=== PATIENT | male | born 1975 | race Hispanic/Latino ===

== ENCOUNTER → 2018-03-21 | Outpatient (CLI) | payer BC ==
[~2018-03-21] MED LIST: Z.0.AMIODARONE HCL20 PO; Z.0.CARVEDILOL6.25 M PO; Z.0.DIGOXIN125 MCG PO; Z.0.LASIX40 MG PO; Z.0.WARFARIN SODIUM4 PO
--- NOTE | 2018-03-21 16:48 | Diagnostic Imaging Report ---
PROCEDURE:HAND RIGHT 3 VIEWS AP \T\ LAT COMPARISON:None. INDICATIONS:RIGHT HAND AND WRIST PAIN, NO INJURY FINDINGS: The osseous structures are well developed and mineralized without fracture, dislocation, or focal osseous lesion. No degenerative changes. No radiopaque foreign bodies in the soft tissues. CONCLUSION: No osseous abnormality. Dictated by: Jacob Rodrigues M.D. on 03/21/2018 at 16:52 Electronically approved by: Jacob Rodrigues M.D. on 03/21/2018 at 16:52
--- NOTE | 2018-03-21 16:50 | Diagnostic Imaging Report ---
PROCEDURE:X-RAY RIGHT WRIST, COMPLETE COMPARISON:Hand x-rays obtained at the same time. INDICATIONS:RIGHT HAND AND WRIST PAIN, NO INJURY FINDINGS: There are no fractures, dislocations, lytic or blastic lesions. The bones are well-mineralized. The soft-tissues are unremarkable. CONCLUSION: No osseous abnormalities. Dictated by: Jacob Rodrigues M.D. on 03/21/2018 at 16:53 Electronically approved by: Jacob Rodrigues M.D. on 03/21/2018 at 16:53
== END ==
LOC: RAD 15:42
PROVIDERS: ATTEND Internal Medicine
DX: M13.841 Other specified arthritis, right hand (principal); M13.831 Other specified arthritis, right wrist

== ENCOUNTER → 2019-02-27 | Day surgery (SDC) | payer BC ==
[2019-02-23 10:42] LABS: BASOPHILS % 0.5 % (0.0-1.0); EOSINOPHILS # (AUTO) 0.1 (0.0-0.4); EOSINOPHILS % 2.5 % (0.0-6.0); HEMATOCRIT 39.6 % (38.2-49.6); LYMPHOCYTES # (AUTO) 1.5 (1.0-3.2); LYMPHOCYTES % 33.6 % (18.0-39.1); MEAN CORPUSCULAR HEMOGLOBIN 29.6 pg (28-32); MEAN CORPUSCULAR HGB CONC 34.8 g/dL (31-35); MEAN CORPUSCULAR VOLUME 84.8 fL (81-99); MONOCYTES # (AUTO) 0.5 (0.2-0.8); MONOCYTES % 10.3 % (4.4-11.3); NEUTROPHILS # (AUTO) 2.3 (2.1-6.9); NEUTROPHILS % 52.9 % (38.7-80.0); PLATELET COUNT 228 x10e3/uL (140-360); RED BLOOD COUNT 4.67 x10e6/uL (4.3-5.7); RED CELL DISTRIBUTION WIDTH 12.7 % (11.7-14.4)
[2019-02-23 10:49] LABS: HEMOGLOBIN 13.8 g/dL (14.0-18.0)
[2019-02-23 11:12] LABS: ALANINE AMINOTRANSFERASE 30 IU/L (0-55); ALBUMIN 4.6 g/dL (3.5-5.0); ALBUMIN/GLOBULIN RATIO 1.6 (0.8-2.0); ALKALINE PHOSPHATASE 64 IU/L (40-150); BLOOD UREA NITROGEN 11 mg/dL (7-26); BUN/CREATININE RATIO 13 (6-25); CALCIUM 9.9 mg/dL (8.4-10.2); CARBON DIOXIDE 26 mmol/L (22-29); CHLORIDE 102 mmol/L (98-107); CREATININE, SERUM 0.87 mg/dL (0.72-1.25); EST GLOMERULAR FILTRATION RATE > 60 ML/MIN (60-); GLUCOSE 102 mg/dL (74-118); SODIUM 136 mmol/L (136-145)
[2019-02-27] VITALS (12 sets, daily range): BP systolic 110–129; BP diastolic 71–90
[~2019-02-27] VITALS: Ht 167.6 cm; Wt 90.7 kg
[~2019-02-27] MED LIST changes: +ALPRAZOLAM 0.5 MG TAB ONE; +CRESTOR10 MG PO; +DIPHENHYDRAMINE HCL 25 MG CAP ONE; +FENOFIBRATE145 MG PO; +FENTANYL CITRATE/PF 100MCG/2 ML INJ ONE; +FLECAINIDE ACE100 MG PO; +HEPARIN SOD/SOD CHLORIDE 2,000 ML ONE; +IOPAMIDOL 370 MG/ML 200 ML INFUS..BTL INJ ONE; +LEVOTHYROXINE25 MCG PO; +LIDOCAINE HCL 2% LOCAL 20 ML VIAL ONE; +MIDAZOLAM HCL 2 MG/2 ML VIAL ONE; +SODIUM CHLORIDE 0.9% 1000ML 1,000 ML ONE
--- OUTSIDE RECORDS SUMMARY | 2019-02-27 11:14 | XMS REPORT ---
Author Author [facility] Address Unknown Phone Unavailable Care Team Providers Care Marine Engineering Consultant Name Role Phone DEDRICK ORDONEZ Unavailable Unavailable Problems This patient has no known problems. Allergies, Adverse Reactions, Alerts This patient has no known allergies or adverse reactions. Medications This patient has no known medications. Results Test Description Test Time Test Comments Text Results Atomic Results Result Comments HAND 3+ VIEWS RIGHT [place] [address] Patient Name: TARSHA TURNER MR #: [id number] : 1975 Age/Sex: 43/M Req #: [id number] Adm Physician: Ordered by: DEDRICK ORDONEZ MD Report #: [id number] Location: [facility] Room/Bed: Procedure: [id number] DX/HAND 3+ VIEWS RIGHT Exam Date: Exam Time: REPORT STATUS: Signed PROCEDURE: HAND RIGHT 3 VIEWS AP T LAT COMPARISON: None. INDICATIONS: RIGHT HAND AND WRIST PAIN, NO INJURY FINDINGS: The osseous structures are well developed and mineralized without fracture, dislocation, or focal osseous lesion. No degenerative changes. No radiopaque foreign bodies in the soft tissues. CONCLUSION: No osseous abnormality. Dictated by: Marcos Rodrigues M.D. on 03/21/2018 at 16:52 Electronically approved by: Marcos Rodrigues M.D. on 03/21/2018 at 16:52 Dictated By: MARCOS RODRIGUES MD 51 Transcribed By: SUE on 03/21/181651 COPY TO: DEDRICK ORDONEZ MD WRIST COMPLETE RIGHT [place] [address] Patient Name: TARSHA TURNER MR #: [id number] : 1975 Age/Sex: 43/M Req #: [id number] Adm Physician: Ordered by: DEDRICK ORDONEZ MD Report #: [id number] Location: [facility] Room/Bed: Procedure: [id number] DX/WRIST COMPLETE RIGHT Exam Date: Exam Time: REPORT STATUS: Signed PROCEDURE: X-RAY RIGHT WRIST, COMPLETE COMPARISON: Hand x-rays obtained at the same time. INDICATIONS: RIGHT HAND AND WRIST PAIN, NO INJURY FINDINGS: There are no fractures, dislocations, lytic or blastic lesions. The bones are well-mineralized. The soft-tissues are unremarkable. CONCLUSION: No osseous abnormalities. Dictated by: Marcos Rodrigues M.D. on 03/21/2018 at 16:53 Electronically approved by: Marcos Rodrigues M.D. on 03/21/2018 at 16:53 Dictated By: MARCOS RODRIGUES MD 52 Transcribed By: SUE on 03/21/181652 COPY TO: DEDRICK ORDONEZ MD
--- NOTE | 2019-02-27 15:50 | NUR ---
Offered PO fluids and food however patient declined.
--- NOTE | 2019-02-27 17:36 | NUR ---
Patient allowed to dress and get ready to be discharge. Patient IV removed and clean dressing applied to access site. Patient and family member given discharge instructions. Patient and family verbalized understanding of the instructions given and had no questions at this time.
--- NOTE | 2019-02-27 21:49 | Operative Report ---
DATE OF PROCEDURE: 02/27/2019 SURGEON: Oz Miranda MD PROCEDURE: Cardiac general laborer. INDICATION: Coronary artery disease, abnormal stress test. PROCEDURES PERFORMED: 1. Left heart catheterization, selective coronary angiography. 2. Deployment of right wrist TR band. COMPLICATIONS: None. RECOMMENDATIONS: Medical therapy, resumption of anticoagulation. DESCRIPTION OF PROCEDURE: Access was obtained in the right radial artery using ultrasound guidance. A 5-[place]yr[place] sheath was placed. Diagnostic coronary angiogram revealed mild coronary artery disease, 10 to 20% luminal stenosis of the circumflex, a distal 80% stenosis 1.5 mm vessel, ostial diagonal artery 50% stenosis, right coronary artery had mild disease. No critical stenosis or occlusions were found that needed intervention. Moderate coronary artery disease was noted. Right wrist sheath and wire were removed. TR band applied. The patient discharged home same day. Oz Miranda MD KSB/MODL /[id number]
== END | disposition home or self-care (01) ==
LOC: CATH LAB 11:12
PROVIDERS: ATTEND Internal Medicine Interventional Cardiology
DX: I25.118 Atherosclerotic heart disease of native coronary artery with other forms of angina pectoris (principal); Z01.812 Encounter for preprocedural laboratory examination; I48.0 Paroxysmal atrial fibrillation; Z95.2 Presence of prosthetic heart valve; E78.5 Hyperlipidemia, unspecified
CPT/HCPCS: 36415; 76942; 80053; 85025; 93454; C1769; C1887; J2001; J2250; J7030; Q9967